=== PATIENT | female | born 1940 | race Caucasian/White ===

== ENCOUNTER 2017-12-23 19:09 | Inpatient (IN) | payer MEDICARE ==
[~2017-12-23] VITALS: Ht 177.8 cm; Wt 86.4 kg
[2017-12-24 02:05] VITALS: BP 140/75; PULSE 74; RESP 18; TEMP 97.8; O2SAT 96
[2017-12-24] MEDS ORDERED: AMLO10 PO (03:49)
[2017-12-24] MEDS ORDERED: LORA2TAB7 PO (03:51)
[2017-12-24] MEDS ORDERED: REME15TA PO (03:53)
[2017-12-24] MEDS ORDERED: ACET-822 PO (03:58)
[2017-12-24] MEDS ORDERED: MULT-65 PO (04:01)
[2017-12-24] MEDS ORDERED: DIAZ5TAB PO (04:01)
[2017-12-24] MEDS ORDERED: BENZ9.352 PO (04:09)
[2017-12-24] MEDS ORDERED: NICOTINE 21 MG/24 HR PATCH T-DERMAL PRN (04:30)
[2017-12-24] MEDS ORDERED: MAGNESIUM HYDROXIDE SUSP 30 ML CUP PO PRN (04:30)
[2017-12-24] MEDS ORDERED: REMOVE OLD NICOTINE PATCH T-DERMAL PRN (04:30)
[2017-12-24] MEDS ORDERED: ALUMINUM/MAGNESIUM/SIMETH 30 ML CUP PO PRN (04:30)
[2017-12-24] MEDS ORDERED: LORazepam 2 MG TAB PO PRN (05:00)
[2017-12-24] MEDS ORDERED: FLUMAZENIL 0.5 MG/5 ML VIAL IV PUSH PRN (05:00)
[2017-12-24] MEDS ORDERED: LORazepam 1 MG TAB PO PRN (05:00)
[2017-12-24] MEDS ORDERED: LORazepam 2 MG/ML VIAL IV PUSH PRN ×4 (05:00)
[2017-12-24 06:00] VITALS: BP 173/74; PULSE 63; RESP 16; TEMP 97.4; O2SAT 93
[2017-12-24 07:56] LABS: AUTOMATED NEUTROPHIL # 3.1 TH/MM3 (1.8-7.7); BASOPHIL # 0.1 TH/MM3 (0-0.2); BASOPHIL % 0.9 % (0.0-2.0); EOSINOPHIL # 0.2 TH/MM3 (0-0.4); EOSINOPHIL % 3.2 % (0.0-4.0); HEMATOCRIT 41.1 % (35.0-46.0); HEMOGLOBIN 14.1 GM/DL (11.6-15.3); LYMPH % 32.1 % (9.0-44.0); LYMPHOCYTE # 1.9 TH/MM3 (1.0-4.8); MEAN CELL VOLUME 93.6 FL (80.0-100.0); MEAN CORPUSCULAR HEMOGLOBIN 32.1 PG (27.0-34.0); MEAN CORPUSCULAR HGB CONC 34.3 % (32.0-36.0); MEAN PLATELET VOLUME 9.2 FL (7.0-11.0); MONO % 12.2 % (0.0-8.0); MONOCYTE # 0.7 TH/MM3 (0-0.9); NEUT % 51.6 % (16.0-70.0); PLATELET COUNT 192 TH/MM3 (150-450); RED BLOOD COUNT 4.39 MIL/MM3 (4.00-5.30); RED CELL DISTRIBUTION WIDTH 13.2 % (11.6-17.2)
[2017-12-24 08:07] LABS: ALBUMIN 3.3 GM/DL (3.4-5.0); ALT (GPT) 25 U/L (10-53); BICARBONATE 21.1 MEQ/L (21.0-32.0); BLOOD UREA NITROGEN 27 MG/DL (7-18); CALCIUM 9.5 MG/DL (8.5-10.1); CHLORIDE 110 MEQ/L (98-107); GLUCOSE,RANDOM 89 MG/DL (74-106); SODIUM (NA) 143 MEQ/L (136-145)
[2017-12-24 08:08] LABS: AST (GOT) 24 U/L (15-37); CREATININE 1.09 MG/DL (0.50-1.00); GLOMERULAR FILTRATION RATE 49 ML/MIN (>89); TOTAL BILIRUBIN ADULT 0.2 MG/DL (0.2-1.0)
[2017-12-24 08:17] LABS: ALKALINE PHOSPHATASE 126 U/L (45-117); TOTAL PROTEIN 6.7 GM/DL (6.4-8.2)
[2017-12-24] MEDS: ACETAMINOPHEN 325 MG TAB PO PRN ×2 (10:20→14:32)
--- NOTE | 2017-12-24 14:57 | HHI.HP ---
Provisional Diagnosis Admission Date Dec 24, 2017 at 02:00 George I. Adjustment disorder with mixed disturbances of emotion and conduct Certification of Person's Competence To Provide Express and Informed Consent I have personally examined Julianna Corea , a person being served at [facility] on, Dec 24, 2017 14:45. Express and informed consent means consent voluntarily given in writing, by a competent person, after sufficient explanation and disclosure of the subject matter involved to enable the person to make a knowing and willful decision without any element of force, fraud, deceit, duress, or other form of constraint or coercion. This person is 18 years of age or older, is not now known to be incompetent to consent to treatment with a guardian advocate, and does not have a health care surrogate or proxy currently making medical treatment decisions. I have found this person to be one of the following: [] Competent to provide express and informed consent, as defined above, for voluntary admission to this facility and is competent to provide express and informed consent for treatment. He/she has the consistent capacity to make well reasoned, willful, and knowing decisions concerning his or her medical or mental health treatment. The person fully and consistently understands the purpose of the admission for examination/placement and is fully capable of personally exercising all rights [place] [] Incompetent to provide express and informed consent to voluntary admission, and this is incompetent to provide express and informed consent to treatment. The person must be transferred to involuntary status and a petition for a guardian advocate filed with the Circuit Court. []xxxx Refusing to provide express and informed consent to voluntary admission but is competent to provide express and informed consent for treatment. The person must be discharged or transferred to involuntary status. Form shall be completed within 24 hours of a person's arrival at the receiving facility and filed in the clinical record of each person: 1. Admitted on a voluntary basis 2. Permitted to provide express and informed consent to his/her own treatment 3. Allowed to transfer from involuntary to voluntary status 4. Prior to permitting a person to consent to his or her own treatment after having been previously found incompetent to consent to treatment. History of Present Illness Capacity: Lacks Capacity (Patient lacks capacity to sign for admission, patient has capacity to sign for medication) HPI Patient is a 77-year-old white female initially comes to [facility] under a [place] act dated 12/22/2017 and 4: 18 PM that document reviewed essentially states patient states she wants to kill herself and has filled out her well because she is serious about wanting to kill herself. Patient was seen and screened in that facility medically cleared and transferred here under the [place] act. At the present time patient sitting quietly in her room present also or medical student julia, counselor Violet, and nurse Anabel. Patient states she is depressed because of relationship with her son is moved out of the house she wishes him back in the house she is somewhat confusing with some of her history though overall she seems to be oriented. She states she has had past hospitalizations for medical issues but denies any psychiatric hospitalization. Though a phone call with her daughter states she has been [place] acted 5 times in the past. Patient denies suicidality to us denies homicidality denies voices or visions. She denies any alcohol or drug use. She is vague about any past physical or sexual abuse, is vague about any mental health history in her family. In any event at the present time patient does meet criteria for continued inpatient psychiatric hospitalization of the [place] act I will do first opinion request a second opinion. I feel she has capacity to sign for medications. We will have a hospitalist consult will S, we will continue medications per the med verification except for the had 2 benzodiazepines that have been noted. We will have a neuropsychology to assessment also to status and assessing her cognitive function. Hopefully this to be a short stay we need to work with family to discuss placement issues since they live 2 counties away Review of Systems Constitutional: DENIES: Diaphoretic episodes, Fatigue, Fever, Weight gain, Weight loss, Chills, Dizziness, Change in appetite, Night Sweats Endocrine: DENIES: Abnorml menstrual pattern, Heat/cold intolerance, Polydipsia , Polyuria, Polyphagia Eyes: DENIES: Blurred vision, Diplopia, Eye inflammation, Eye pain, Vision loss , Photosensitivity, Double Vision Ears, nose, mouth, throat: DENIES: Tinnitus, Hearing loss, Vertigo, Nasal discharge, Oral lesions, Throat pain, Hoarseness, Ear Pain, Running Nose, Epistaxis, Sinus Pain, Toothache, Odynophagia Respiratory: DENIES: Apneas, Cough, Snoring, Wheezing, Hemoptysis, Sputum production, Shortness of breath Cardiovascular: DENIES: Chest pain, Palpitations, Syncope, Dyspnea on Exertion , PND, Lower Extremity Edema, Orthopnea, Claudication Gastrointestinal: DENIES: Abdominal pain, Black stools, Bloody stools, Constipation, Diarrhea, Nausea, Vomiting, Difficulty Swallowing, Anorexia Genitourinary: DENIES: Abnormal vaginal bleeding, Dysmenorrhea, Dyspareunia, Sexual dysfunction, Urinary frequency, Urinary incontinence, Urgency, Hematuria , Dysuria, Nocturia, Vaginal discharge Musculoskeletal: DENIES: Joint pain, Muscle aches, Stiffness, Joint Swelling, Back pain, Neck pain Hematologic/lymphatic: DENIES: Bruising, Lymphadenopathy Immunologic/allergic: DENIES: Eczema, Urticaria Neurologic: DENIES: Abnormal gait, Headache, Localized weakness, Paresthesias, Seizures, Speech Problems, Tremor, Poor Balance Psychiatric: COMPLAINS OF: Depression, Suicidal Ideation Past Psych History Psychological trauma history Patient denies Violence risk - others (6 mos) Low Violence risk - self (6 mos) Low to moderate Substance Abuse History Drugs/Alcohol past 12 months Unknown at this time Past Family Social History Coded Allergies: niacin (Verified Allergy, Intermediate, RASH, 12/24/17) morphine (Verified Allergy, Mild, RASH AT IV SITE, 12/24/17) Reported Medications Benzocaine (Oral Pain Relief) 20 % Gel..gram., PO for Pain Management 12/24/17 Diazepam (Diazepam) 5 Mg Tab, 5 MG PO BID Y for tremors, TAB 0 Refills 12/24/17 Multiple Vitamin (Multi-Vitamin Daily) 1 Tab Tab, 1 TAB PO DAILY for Nutritional Supplement, TAB 0 Refills 12/24/17 Acetaminophen (Tylenol Extra Strength) 500 Mg Tablet, PO Q8HR for headache 12/24/17 Mirtazapine (Remeron) 15 Mg Tab, 7.5 MG PO HS for Depression Control, #15 TAB 0 Refills 12/24/17 Lorazepam (Lorazepam) 2 Mg Tab, 2 MG PO Q6H Y for ANXIETY AND/OR AGITATION, TAB 0 Refills 12/24/17 Amlodipine (Norvasc) 10 Mg Tab, 10 MG PO DAILY for Blood Pressure Management, # 30 TAB 0 Refills 12/24/17 Current Medications Medications (Trade) Dose Ordered Sig/Carmen Route Start Time Stop Time Status Last Admin (Tylenol) 650 mg Q4H PRN PO 12/24/17 04:30 12/24/17 14:32 (Milk Of Magnesia Liq) 30 ml DAILY PRN PO 12/24/17 04:30 (Mag-Al Plus Susp Liq) 30 ml Q6H PRN PO 12/24/17 04:30 (Habitrol 21 Mg Patch.24 Hr) 1 patch DAILY PRN T-DERMAL 12/24/17 04:30 Miscellaneous Information 1 HS PRN T-DERMAL 12/24/17 04:30 (Flu (Quadrivalent) Vaccine Inj) 0.5 ml ONCE ONCE IM 12/25/17 10:00 12/25/17 10:01 (Ativan) 1 mg Q4H PRN PO 12/24/17 05:00 (Ativan Inj) 1 mg Q4H PRN IV PUSH 12/24/17 05:00 (Ativan) 2 mg Q2H PRN PO 12/24/17 05:00 (Ativan Inj) 2 mg Q2H PRN IV PUSH 12/24/17 05:00 (Ativan Inj) 2 mg Q1H PRN IV PUSH 12/24/17 05:00 (Ativan Inj) 2 mg Q15M PRN IV PUSH 12/24/17 05:00 (Romazicon Inj) 0.2 mg Q1M PRN IV PUSH 12/24/17 05:00 (Benadryl) 50 mg HS PRN PO 12/24/17 14:45 UNV (Atarax) 50 mg Q6H PRN PO 12/24/17 14:45 UNV (Norvasc) 10 mg DAILY PO 12/25/17 09:00 (Remeron) 7.5 mg HS PO 12/24/17 21:00 UNV Non-Formulary Medication 1 tab DAILY PO 12/25/17 09:00 UNV Family Psych History Unknown at this time Social History Patient lives alone he has grown children Patient's Strengths (min. 2) Patient verbal able access healthcare Physical Exam Patient medically cleared at at the present time patient sitting quietly in her room is in no acute distress was complaining of some pain in her tongue. She is in no respiratory distress, no complaints of chest pain, no complaints of abdominal pain, patient moving all 4 extremities without difficulty Vital Signs Vital Signs Date Time Temp Pulse Resp B/P (MAP) Pulse Ox O2 Delivery O2 Flow Rate FiO2 12/24/17 06:00 97.4 63 16 173/74 (107) 93 I/O 12/24/17 12/24/17 12/25/17 08:00 16:00 00:00 Intake Total 720 ml Balance 720 ml Lab Results Test 12/24/17 07:00 White Blood Count 6.0 TH/MM3 Red Blood Count 4.39 MIL/MM3 Hemoglobin 14.1 GM/DL Hematocrit 41.1 % Mean Corpuscular Volume 93.6 FL Mean Corpuscular Hemoglobin 32.1 PG Mean Corpuscular Hemoglobin Concent 34.3 % Red Cell Distribution Width 13.2 % Platelet Count 192 TH/MM3 Mean Platelet Volume 9.2 FL Neutrophils (%) (Auto) 51.6 % Lymphocytes (%) (Auto) 32.1 % Monocytes (%) (Auto) 12.2 % Eosinophils (%) (Auto) 3.2 % Basophils (%) (Auto) 0.9 % Neutrophils # (Auto) 3.1 TH/MM3 Lymphocytes # (Auto) 1.9 TH/MM3 Monocytes # (Auto) 0.7 TH/MM3 Eosinophils # (Auto) 0.2 TH/MM3 Basophils # (Auto) 0.1 TH/MM3 CBC Comment DIFF FINAL Differential Comment Blood Urea Nitrogen 27 MG/DL Creatinine 1.09 MG/DL Random Glucose 89 MG/DL Total Protein 6.7 GM/DL Albumin 3.3 GM/DL Calcium Level 9.5 MG/DL Alkaline Phosphatase 126 U/L Aspartate Amino Transf (AST/SGOT) 24 U/L Alanine Aminotransferase (ALT/SGPT) 25 U/L Total Bilirubin 0.2 MG/DL Sodium Level 143 MEQ/L Potassium Level 3.7 MEQ/L Chloride Level 110 MEQ/L Carbon Dioxide Level 21.1 MEQ/L Anion Gap 12 MEQ/L Estimat Glomerular Filtration Rate 49 ML/MIN Thyroid Stimulating Hormone 3rd Gen 2.850 uIU/ML Mental Status Examination Appearance: Appropriate Consciousness: Alert Orientation: Person, Place (Confused), Date/Time (Quite confused), Situation ( Low since the hospital) Speech: Unremarkable Language: Adequate Fund of Knowledge: Adequate Attention and Concentration: Other (Fair) Memory: Impaired Mood: Sad Affect: Other (Decreased range and intensity) Thought Process & Associations: Disorganized Thought Content: Bizarre thinking Hallucination Type: None Delusion Type: None Suicidal Ideation: No (Denies at this time) Suicidal Plan: No Suicidal Intention: No Homicidal Ideation: No Homicidal Plan: No Homicidal Intention: No Insight: Poor Judgment: Poor Assessment & Plan Problem List: (1) Adjustment disorder with mixed disturbance of emotions and conduct ICD Codes: F43.25 - Adjustment disorder with mixed disturbance of emotions and conduct Assessment & Plan Estimated LOS: 3-5 days patient meets criteria for involuntary psychiatric hospitalization I will do first opinion request second opinion before she does have capacity to sign for medications. We will have a hospitalist consult will S will also have no psychology consult with us. We will continue medications per the med reconciliation hopeless be fairly short stay and we can consult with the members about placement issues Discharge Planning To be determined Request HC Surrog/Guard Advoc?: No Dawson Dickerson MD Dec 24, 2017 14:57
[2017-12-24] MEDS ORDERED: PILL SPLITTER OTHER PRN (15:00)
--- NOTE | 2017-12-24 17:02 | PD.CONS ---
HPI Service [facility] Hospitalists Consult Requested By Psychiatry Reason for Consult Medical management Primary Care Physician Unknown Diagnoses: History of Present Illness 77-year-old female for past medical history of hypertension, who is currently under [place] act and admitted to inpatient psychiatry, he has been evaluated for medical management per request of psychiatry. Apparently, patient was transferred to [facility] from [place] secondary to suicidal ideation however without any homicidal thoughts. Patient states, she was upset at the thought that her son left home. She denied any prior history of suicidal ideations, however she was placed under [place] act at least 5 times in the past. During my exam, she denied any chest pain, shortness of breath. She appear remorseful and regretted her act. Review of Systems Except as stated in HPI: all other systems reviewed are Neg Past Family Social History Allergies: Coded Allergies: niacin (Verified Allergy, Intermediate, RASH, 12/24/17) morphine (Verified Allergy, Mild, RASH AT IV SITE, 12/24/17) Past Medical History Hypertension Anxiety and depression Past Surgical History Hysterectomy Appendectomy Cholecystectomy Reported Medications See EMR Family History Denies any family history of heart disease Social History Patient denies tobacco, or illicit drug intake Physical Exam Vital Signs Vital Signs Date Time Temp Pulse Resp B/P (MAP) Pulse Ox O2 Delivery O2 Flow Rate FiO2 12/24/17 06:00 97.4 63 16 173/74 (107) 93 12/24/17 02:05 97.8 74 18 140/75 (96) 96 Physical Exam GENERAL: This is a well-nourished, well-developed patient, in no apparent distress. SKIN: No rashes, ecchymoses or lesions. Cool and dry. HEAD: Atraumatic. Normocephalic. No temporal or scalp tenderness. EYES: Pupils equal round and reactive. Extraocular motions intact. No scleral icterus. No injection or drainage. ENT: Nose without bleeding, purulent drainage or septal hematoma. Throat without erythema, tonsillar hypertrophy or exudate. Uvula midline. Airway patent. NECK: Trachea midline. No JVD or lymphadenopathy. Supple, nontender, no meningeal signs. CARDIOVASCULAR: Regular rate and rhythm without murmurs, gallops, or rubs. RESPIRATORY: Clear to auscultation. Breath sounds equal bilaterally. No wheezes , rales, or rhonchi. GASTROINTESTINAL: Abdomen soft, non-tender, nondistended. No hepato-splenomegaly , or palpable masses. No guarding. MUSCULOSKELETAL: Extremities without clubbing, cyanosis, or edema. No joint tenderness, effusion, or edema noted. No calf tenderness. Negative Homans sign bilaterally. NEUROLOGICAL: Awake and alert. Cranial nerves II through XII intact. Motor and sensory grossly within normal limits. Five out of 5 muscle strength in all muscle groups. Normal speech. Laboratory Laboratory Tests Test 12/24/17 07:00 White Blood Count 6.0 Red Blood Count 4.39 Hemoglobin 14.1 Hematocrit 41.1 Mean Corpuscular Volume 93.6 Mean Corpuscular Hemoglobin 32.1 Mean Corpuscular Hemoglobin Concent 34.3 Red Cell Distribution Width 13.2 Platelet Count 192 Mean Platelet Volume 9.2 Neutrophils (%) (Auto) 51.6 Lymphocytes (%) (Auto) 32.1 Monocytes (%) (Auto) 12.2 Eosinophils (%) (Auto) 3.2 Basophils (%) (Auto) 0.9 Neutrophils # (Auto) 3.1 Lymphocytes # (Auto) 1.9 Monocytes # (Auto) 0.7 Eosinophils # (Auto) 0.2 Basophils # (Auto) 0.1 CBC Comment DIFF FINAL Differential Comment Blood Urea Nitrogen 27 Creatinine 1.09 Random Glucose 89 Total Protein 6.7 Albumin 3.3 Calcium Level 9.5 Alkaline Phosphatase 126 Aspartate Amino Transf (AST/SGOT) 24 Alanine Aminotransferase (ALT/SGPT) 25 Total Bilirubin 0.2 Sodium Level 143 Potassium Level 3.7 Chloride Level 110 Carbon Dioxide Level 21.1 Anion Gap 12 Estimat Glomerular Filtration Rate 49 Thyroid Stimulating Hormone 3rd Gen 2.850 Result Diagram: 12/24/17 0700 12/24/17 0700 Assessment and Plan Assessment and Plan 77-year-old female with Acute mood disorder Management per psychiatry Continue Palma act Hypertension Resume normal box and add clonidine as needed Acute renal injury Prerenal likely secondary to dehydration Encourage increased p.o. intake Monitor BUN and creatinine DVT prophylaxis: Encourage ambulation Thank you for this consultation Code Status Full code Discussed Condition With Patient Stuart Alejandro MD Dec 24, 2017 17:02
[2017-12-24] MEDS ORDERED: cloNIDine HCL 0.1 MG TAB PO PRN (17:15)
[2017-12-24 17:48] VITALS: BP 178/70; PULSE 76; RESP 16; TEMP 97.6; O2SAT 94
[2017-12-24 20:00] VITALS: BP 158/78; PULSE 79
[2017-12-24] MEDS: MIRTAZAPINE 15 MG TAB PO SCH (20:42)
[2017-12-24] MEDS: hydrOXYzine HCL 50 MG TAB PO PRN (20:52)
[2017-12-24] MEDS: diphenhydrAMINE HCL 50 MG CAP PO PRN (20:52)
[2017-12-25 05:53] VITALS: BP 143/68; PULSE 71; RESP 17; TEMP 97.7; O2SAT 92
[2017-12-25 08:42] LABS: CHOLESTEROL 257 MG/DL (120-200)
[2017-12-25 08:49] LABS: CHOLESTEROL/ HDL RATIO 6.04 RATIO; HDL CHOLESTEROL 42.5 MG/DL (40.0-60.0); LDL CHOLESTEROL 170 MG/DL (0-99)
[2017-12-25 08:51] LABS: TRIGLYCERIDES 222 MG/DL (42-150)
[2017-12-25] MEDS: MULTIVITAMIN TAB PO SCH (09:32)
[2017-12-25] MEDS ORDERED: INFLUENZA VIRUS VACCINE (QUADRIVALENT) 0.5 ML SYR IM ONE (10:00)
--- NOTE | 2017-12-25 11:02 | HHI.PR ---
Subjective Remarks Follow-up visit for hypertension and SARTHAK. Patient is seen and examined in her room, ambulating without any assistive devices. She reports being compliant with medications and understands the importance of BP control. She denies any fevers, chills, nausea, vomiting, diarrhea, headaches, dizziness, shortness of breath, cough or chest pain. She reports that she would like to go home as she has a new grandchild who she is eager to see and meet. Objective Vitals Vital Signs Date Time Temp Pulse Resp B/P (MAP) Pulse Ox O2 Delivery O2 Flow Rate FiO2 12/25/17 05:53 97.7 71 17 143/68 (93) 92 12/24/17 20:00 79 158/78 (104) 12/24/17 17:48 97.6 76 16 178/70 (106) 94 I/O 12/24/17 12/24/17 12/24/17 12/25/17 12/25/17 12/25/17 07:00 15:00 23:00 07:00 15:00 23:00 Intake Total 720 ml 480 ml 480 ml 240 ml Balance 720 ml 480 ml 480 ml 240 ml Intake Oral 720 ml 480 ml 480 ml 240 ml # Voids 1 Result Diagram: 12/24/17 0700 12/24/17 0700 Objective Remarks GENERAL: Well-developed well-nourished elderly female in no acute distress. SKIN: Warm and dry HEAD: Atraumatic. EYES: Pupils equal round. No scleral icterus. No injection or drainage. ENT: Nose without bleeding. Airway patent. NECK: Trachea midline. CARDIOVASCULAR: Regular rate and rhythm with no murmur. RESPIRATORY: Clear throughout, equal bilaterally with no rhonchi, wheezing, or rales. GASTROINTESTINAL: Soft, nondistended, positive bowel sounds in all quadrants, nontender. MUSCULOSKELETAL: Moving bilateral upper and lower extremities, ambulating the valerio with no assistive devices, no leg edema noted. NEUROLOGICAL: Awake, alert, oriented 3. No cranial nerve deficit noted, equal strength in bilateral upper and lower extremities. Speech is clear, no facial droop. PSYCHIATRIC: Calm, pleasant and cooperative. A/P Assessment and Plan 77-year-old female with Acute mood disorder -Management per psychiatry Hypertension, BP elevated -Patient has received first dose of Norvasc this morning -As needed clonidine as needed -Continue monitoring BP and adjusting medications accordingly Acute renal injury -Prerenal likely secondary to dehydration -Continue to encourage p.o. intake -Check BMP tomorrow HLD -Lipid profile reviewed with elevated LDL at 170, cholesterol, and triglycerides. -10 year ASCVD risk 30.4, due to age recommendations for moderate intensity statin - Start Pravastatin 40mg HS, follow-up LFTs as outpatient, monitor for myalgia DVT prophylaxis: Ambulation Discussed with patient and nurse. Dominick Luevano Dec 25, 2017 11:02
--- NOTE | 2017-12-25 12:35 | PD.PSY.CON ---
Provisional Diagnosis Admission Date Dec 24, 2017 at 02:00 [place]. Adjustment disorder with mixed disturbances of emotion and conduct History of Present Illness Service Psychiatry Consult Requested By psychiatry Reason for Consult second opinion Primary Care Physician Unknown HPI Patient is a 77-year-old white female initially comes to [facility] under a [place] act dated 12/22/2017 and 4: 18 PM that document reviewed essentially states patient states she wants to kill herself and has filled out her well because she is serious about wanting to kill herself. Patient was seen and screened in that facility medically cleared and transferred here under the [place] act. At the present time patient sitting quietly in her room present also or medical student julia, counselor Violet, and nurse Anabel. Patient states she is depressed because of relationship with her son is moved out of the house she wishes him back in the house she is somewhat confusing with some of her history though overall she seems to be oriented. She states she has had past hospitalizations for medical issues but denies any psychiatric hospitalization. Though a phone call with her daughter states she has been [place] acted 5 times in the past. Patient denies suicidality to us denies homicidality denies voices or visions. She denies any alcohol or drug use. She is vague about any past physical or sexual abuse, is vague about any mental health history in her family. In any event at the present time patient does meet criteria for continued inpatient psychiatric hospitalization of the [place] act I will do first opinion request a second opinion. I feel she has capacity to sign for medications. We will have a hospitalist consult will S, we will continue medications per the med verification except for the had 2 benzodiazepines that have been noted. We will have a neuropsychology to assessment also to status and assessing her cognitive function. Hopefully this to be a short stay we need to work with family to discuss placement issues since they live 2 counties away. The patient is a 77-year-old woman, domiciled alone, psychiatric history of depression, who was hospitalized on the [place] act for suicidal ideation. She was consulted to me for second opinion. The patient is calm, cooperative, states that she feels much better today. She is eating her lunch, reports that she has been quite depressed and upset after her son move out of her house. But at this moment feels much better, denies hopelessness, denies hopelessness, denies worthlessness, she denies suicidal and homicidal ideation at the moment, she denies visual and auditory hallucinations. She is oriented 3. Review of Systems Constitutional: DENIES: Diaphoretic episodes, Fatigue, Fever, Weight gain, Weight loss, Chills, Dizziness, Change in appetite, Night Sweats Endocrine: DENIES: Abnorml menstrual pattern, Heat/cold intolerance, Polydipsia , Polyuria, Polyphagia Eyes: DENIES: Blurred vision, Diplopia, Eye inflammation, Eye pain, Vision loss , Photosensitivity, Double Vision Ears, nose, mouth, throat: DENIES: Tinnitus, Hearing loss, Vertigo, Nasal discharge, Oral lesions, Throat pain, Hoarseness, Ear Pain, Running Nose, Epistaxis, Sinus Pain, Toothache, Odynophagia Respiratory: DENIES: Apneas, Cough, Snoring, Wheezing, Hemoptysis, Sputum production, Shortness of breath Cardiovascular: DENIES: Chest pain, Palpitations, Syncope, Dyspnea on Exertion , PND, Lower Extremity Edema, Orthopnea, Claudication Gastrointestinal: DENIES: Abdominal pain, Black stools, Bloody stools, Constipation, Diarrhea, Nausea, Vomiting, Difficulty Swallowing, Anorexia Genitourinary: DENIES: Abnormal vaginal bleeding, Dysmenorrhea, Dyspareunia, Sexual dysfunction, Urinary frequency, Urinary incontinence, Urgency, Hematuria , Dysuria, Nocturia, Vaginal discharge Musculoskeletal: DENIES: Joint pain, Muscle aches, Stiffness, Joint Swelling, Back pain, Neck pain Integumentary: DENIES: Abnormal pigmentation, Pruritus, Rash, Nail changes, Breast masses, Breast skin changes, Nipple discharge Hematologic/lymphatic: DENIES: Bruising, Lymphadenopathy Immunologic/allergic: DENIES: Eczema, Urticaria Psychiatric: COMPLAINS OF: Depression, DENIES: Anxiety, Confusion, Mood changes , Hallucinations, Agitation, Suicidal Ideation, Homicidal Ideation, Delusions Past Family Social History Coded Allergies: niacin (Verified Allergy, Intermediate, RASH, 12/24/17) morphine (Verified Allergy, Mild, RASH AT IV SITE, 12/24/17) Reported Medications Benzocaine (Oral Pain Relief) 20 % Gel..gram., PO for Pain Management 12/24/17 Diazepam (Diazepam) 5 Mg Tab, 5 MG PO BID Y for tremors, TAB 0 Refills 12/24/17 Multiple Vitamin (Multi-Vitamin Daily) 1 Tab Tab, 1 TAB PO DAILY for Nutritional Supplement, TAB 0 Refills 12/24/17 Acetaminophen (Tylenol Extra Strength) 500 Mg Tablet, PO Q8HR for headache 12/24/17 Mirtazapine (Remeron) 15 Mg Tab, 7.5 MG PO HS for Depression Control, #15 TAB 0 Refills 12/24/17 Lorazepam (Lorazepam) 2 Mg Tab, 2 MG PO Q6H Y for ANXIETY AND/OR AGITATION, TAB 0 Refills 12/24/17 Amlodipine (Norvasc) 10 Mg Tab, 10 MG PO DAILY for Blood Pressure Management, # 30 TAB 0 Refills 12/24/17 Current Medications Medications (Trade) Dose Ordered Sig/Carmen Route Start Time Stop Time Status Last Admin (Tylenol) 650 mg Q4H PRN PO 12/24/17 04:30 12/24/17 14:32 (Milk Of Magnesia Liq) 30 ml DAILY PRN PO 12/24/17 04:30 (Mag-Al Plus Susp Liq) 30 ml Q6H PRN PO 12/24/17 04:30 (Habitrol 21 Mg Patch.24 Hr) 1 patch DAILY PRN T-DERMAL 12/24/17 04:30 Miscellaneous Information 1 HS PRN T-DERMAL 12/24/17 04:30 (Ativan) 1 mg Q4H PRN PO 12/24/17 05:00 (Ativan Inj) 1 mg Q4H PRN IV PUSH 12/24/17 05:00 (Ativan) 2 mg Q2H PRN PO 12/24/17 05:00 (Ativan Inj) 2 mg Q2H PRN IV PUSH 12/24/17 05:00 (Ativan Inj) 2 mg Q1H PRN IV PUSH 12/24/17 05:00 (Ativan Inj) 2 mg Q15M PRN IV PUSH 12/24/17 05:00 (Romazicon Inj) 0.2 mg Q1M PRN IV PUSH 12/24/17 05:00 (Benadryl) 50 mg HS PRN PO 12/24/17 21:00 12/24/17 20:52 (Atarax) 50 mg Q6H PRN PO 12/24/17 14:45 12/24/17 20:52 (Norvasc) 10 mg DAILY PO 12/25/17 09:00 12/25/17 09:32 (Remeron) 7.5 mg HS PO 12/24/17 21:00 12/24/17 20:42 (Theragran) 1 tab DAILY PO 12/25/17 09:00 12/25/17 09:32 (Pill Splitter) 1 ea UNSCH PRN OTHER 12/24/17 15:00 (Catapres) 0.1 mg Q6H PRN PO 12/24/17 17:15 (Eucerin Cream) 1 applic DAILY TOPICAL 12/26/17 09:00 Patient's Strengths (min. 2) Patient verbal able access healthcare Physical Exam Vital Signs Vital Signs Date Time Temp Pulse Resp B/P (MAP) Pulse Ox O2 Delivery O2 Flow Rate FiO2 12/25/17 05:53 97.7 71 17 143/68 (93) 92 I/O 12/25/17 12/25/17 12/26/17 08:00 16:00 00:00 Intake Total 720 ml Balance 720 ml Lab Results Test 12/25/17 06:56 Triglycerides Level 222 MG/DL Cholesterol Level 257 MG/DL LDL Cholesterol 170 MG/DL HDL Cholesterol 42.5 MG/DL Cholesterol/HDL Ratio 6.04 RATIO Mental Status Examination Appearance: Appropriate Consciousness: Alert Orientation: Person, Place (Confused), Date/Time (Quite confused), Situation ( Low since the hospital) Speech: Unremarkable Language: Adequate Fund of Knowledge: Adequate Attention and Concentration: Other (Fair) Memory: Impaired Mood: Sad Affect: Other (Decreased range and intensity) Thought Process & Associations: Disorganized Thought Content: Bizarre thinking Hallucination Type: None Delusion Type: None Suicidal Ideation: No (Denies at this time) Suicidal Plan: No Suicidal Intention: No Homicidal Ideation: No Homicidal Plan: No Homicidal Intention: No Insight: Poor Judgment: Poor Assessment & Plan Problem List: (1) Adjustment disorder with mixed disturbance of emotions and conduct ICD Codes: F43.25 - Adjustment disorder with mixed disturbance of emotions and conduct Assessment & Plan: I have seen and examined this patient, reviewed documentation, I agree and concur with Dr. Dickerson's assessment and plan. Assessment & Plan Estimated LOS: days Request HC Surrog/Guard Advoc?: Devaughn Rodgers MD Dec 25, 2017 12:34
[2017-12-25] MEDS: ACETAMINOPHEN 325 MG TAB PO PRN (13:57)
[2017-12-25 15:40] LABS: HEMOGLOBIN A1C 5.4 % (4.3-6.0)
--- NOTE | 2017-12-25 16:29 | HHI.PYPN ---
Subjective Remarks Reviewed electronic medical records and discussed case with staff. Patient was evaluated in the day room with SAWYER Fung present. She was found sitting at the table talking with other patients. She advises that she has been sleeping well and her appetite has been "too good". She begins discussing her 's approximately 2 years ago and becomes tearful. She does state that she would like to go to assisted living facility when she leaves here. Overall, she believes she is doing better however there is still evidence that she is grieving. Mental Status Examination Appearance: Appropriate Consciousness: Alert Orientation: Person, Place (Confused), Date/Time (Quite confused), Situation ( Low since the hospital) Speech: Unremarkable Language: Adequate Fund of Knowledge: Adequate Attention and Concentration: Other (Fair) Memory: Impaired Mood: Sad Affect: Other (Decreased range and intensity) Thought Process & Associations: Disorganized Thought Content: Bizarre thinking Hallucination Type: None Delusion Type: None Suicidal Ideation: No (Denies at this time) Suicidal Plan: No Suicidal Intention: No Homicidal Ideation: No Homicidal Plan: No Homicidal Intention: No Insight: Poor Judgment: Poor Results Labs Test 12/25/17 06:56 Triglycerides Level 222 MG/DL Cholesterol Level 257 MG/DL LDL Cholesterol 170 MG/DL HDL Cholesterol 42.5 MG/DL Cholesterol/HDL Ratio 6.04 RATIO Vitals/IOs Vital Signs Date Time Temp Pulse Resp B/P (MAP) Pulse Ox O2 Delivery O2 Flow Rate FiO2 12/25/17 05:53 97.7 71 17 143/68 (93) 92 Intake and Output 12/25/17 12/25/17 12/26/17 08:00 16:00 00:00 Intake Total 1320 ml Balance 1320 ml Assessment & Plan Problem List: (1) Adjustment disorder with mixed disturbance of emotions and conduct ICD Codes: F43.25 - Adjustment disorder with mixed disturbance of emotions and conduct Assessment & Plan Estimated LOS: Discharge planning is in progress continue with current treatment plan. Days Justification for Cont. Inpt. Moving this patient to a lower level of care would likely result in a decompensation. Request HC Surrog/Guard Advoc?: No Berenice Wiley Dec 25, 2017 16:29
[2017-12-25] MEDS: MIRTAZAPINE 15 MG TAB PO SCH (20:52)
[2017-12-25] MEDS: PRAVASTATIN SOD 40 MG TAB PO SCH (20:52)
[2017-12-25] MEDS: hydrOXYzine HCL 50 MG TAB PO PRN (20:57)
[2017-12-25] MEDS: diphenhydrAMINE HCL 50 MG CAP PO PRN (20:57)
[2017-12-26 05:15] VITALS: BP 127/68; PULSE 75; RESP 18; TEMP 97.8; O2SAT 92
[2017-12-26] MEDS: MULTIVITAMIN TAB PO SCH (08:31)
[2017-12-26] MEDS: EUCERIN CREAM 120 GM JAR TOPICAL SCH (08:31)
[2017-12-26 09:39] LABS: BICARBONATE 23.4 MEQ/L (21.0-32.0); CALCIUM 9.9 MG/DL (8.5-10.1); CREATININE 1.27 MG/DL (0.50-1.00)
--- NOTE | 2017-12-26 10:30 | HHI.PR ---
Subjective Remarks Follow-up visit for hypertension and SARTHAK. Patient is seen and examined in the day room in no acute distress. We discussed her labs and patient tells me that she dos not like the taste of the water, but will try and drink for fluids. She denies any fevers, chills, N/V/D, SOB, cough or muscle aches and pains. She voices no acute concern or complaint at this moment. Objective Vitals Vital Signs Date Time Temp Pulse Resp B/P (MAP) Pulse Ox O2 Delivery O2 Flow Rate FiO2 12/26/17 05:15 97.8 75 18 127/68 (87) 92 I/O 12/25/17 12/25/17 12/25/17 12/26/17 12/26/17 12/26/17 07:00 15:00 23:00 07:00 15:00 23:00 Intake Total 480 ml 1320 ml 270 ml 240 ml 240 ml Balance 480 ml 1320 ml 270 ml 240 ml 240 ml Intake Oral 480 ml 1320 ml 270 ml 240 ml 240 ml # Voids 1 2 3 Result Diagram: 12/24/17 0700 12/26/17 0805 Objective Remarks GENERAL: Well-developed well-nourished elderly female in no acute distress. SKIN: Warm and dry HEAD: Atraumatic. EYES: Pupils equal round. No scleral icterus. No injection or drainage. ENT: Nose without bleeding. Airway patent. NECK: Trachea midline. CARDIOVASCULAR: Regular rate and rhythm with no murmur. RESPIRATORY: Clear throughout, equal bilaterally with no rhonchi, wheezing, or rales. GASTROINTESTINAL: Soft, nondistended, positive bowel sounds in all quadrants, nontender. MUSCULOSKELETAL: Moving bilateral upper and lower extremities, ambulating the valerio, no leg edema noted. NEUROLOGICAL: Awake, alert, oriented 3. No cranial nerve deficit noted, equal strength in bilateral upper and lower extremities. Speech is clear, no facial droop. PSYCHIATRIC: Calm, pleasant and cooperative. A/P Assessment and Plan 77-year-old female with Acute mood disorder -Management per psychiatry Hypertension, improved -Continue Norvasc -As needed clonidine as needed -Continue monitoring BP and adjusting medications accordingly Acute renal injury -Prerenal likely secondary to dehydration - Renal function slightly worse today with increase in BUN and creatinine, Crystal light bottle TID, discussed importance of p.o. hydration - Check BMP on Thursday HLD -Lipid profile reviewed with elevated LDL at 170, cholesterol, and triglycerides. -10 year ASCVD risk 30.4, moderate intensity statin recommended - Continue Pravastatin 40mg HS, follow-up LFTs as outpatient, monitor for myalgia DVT prophylaxis: Ambulation Discussed with patient and nurse. Dominick Luevano Dec 26, 2017 10:30
--- NOTE | 2017-12-26 15:41 | HHI.PYPN ---
Subjective Remarks Patient was seen and case discussed with nursing. Patient feels that her mood is improving. Though her affect remains quite anxious. Per nursing, she is social and helpful on the unit. Somewhat upset she has been able to reach her daughter on the phone. Compliant with medications. Eating and sleeping well Mental Status Examination Appearance: Appropriate Consciousness: Alert Orientation: Person, Place (Confused), Date/Time (Quite confused), Situation ( Low since the hospital) Speech: Unremarkable Language: Adequate Fund of Knowledge: Adequate Attention and Concentration: Other (Fair) Memory: Impaired Mood: Sad Affect: Other (Decreased range and intensity) Thought Process & Associations: Disorganized Thought Content: Bizarre thinking Hallucination Type: None Delusion Type: None Suicidal Ideation: No (Denies at this time) Suicidal Plan: No Suicidal Intention: No Homicidal Ideation: No Homicidal Plan: No Homicidal Intention: No Insight: Poor Judgment: Poor Results Labs Test 12/26/17 08:05 Blood Urea Nitrogen 29 MG/DL Creatinine 1.27 MG/DL Random Glucose 93 MG/DL Calcium Level 9.9 MG/DL Sodium Level 143 MEQ/L Potassium Level 4.1 MEQ/L Chloride Level 110 MEQ/L Carbon Dioxide Level 23.4 MEQ/L Anion Gap 10 MEQ/L Estimat Glomerular Filtration Rate 41 ML/MIN Vitals/IOs Vital Signs Date Time Temp Pulse Resp B/P (MAP) Pulse Ox O2 Delivery O2 Flow Rate FiO2 12/26/17 05:15 97.8 75 18 127/68 (87) 92 Intake and Output 12/26/17 12/26/17 12/27/17 08:00 16:00 00:00 Intake Total 240 ml 360 ml Balance 240 ml 360 ml Assessment & Plan Problem List: (1) Adjustment disorder with mixed disturbance of emotions and conduct ICD Codes: F43.25 - Adjustment disorder with mixed disturbance of emotions and conduct Assessment & Plan Continue current treatment plan Justification for Cont. Inpt. Patient would decompensate in a less restrictive setting Request HC Surrog/Guard Advoc?: No Slim Gomez DO Dec 26, 2017 15:41
[2017-12-26 18:00] VITALS: BP 174/73; PULSE 106; RESP 18; TEMP 97.8; O2SAT 97
[2017-12-26] MEDS: hydrOXYzine HCL 50 MG TAB PO PRN (20:20)
[2017-12-26] MEDS: MIRTAZAPINE 15 MG TAB PO SCH (20:20)
[2017-12-26] MEDS: ACETAMINOPHEN 325 MG TAB PO PRN (20:20)
[2017-12-26] MEDS: diphenhydrAMINE HCL 50 MG CAP PO PRN (20:20)
[2017-12-26] MEDS: PRAVASTATIN SOD 40 MG TAB PO SCH (20:20)
[2017-12-27 06:45] VITALS: BP 116/57; PULSE 74; RESP 17; TEMP 97.8; O2SAT 92
[2017-12-27] MEDS: EUCERIN CREAM 120 GM JAR TOPICAL SCH (08:21)
[2017-12-27] MEDS: MULTIVITAMIN TAB PO SCH (08:22)
--- NOTE | 2017-12-27 12:36 | HHI.PR ---
Subjective Remarks Follow up for HTN, SARTHAK. The patient is seen in the day room eating lunch. She denies any headache, lightheadedness, dizziness, chest pain, shortness of breath , or abdominal complaints. She reports an ache at her right posterior hip, however still able to ambulate without difficulty. She denies any other medical complaints at this time. Discussed with RN, no acute concerns. Encouraged patient to continue oral hydration. Objective Vitals Vital Signs Date Time Temp Pulse Resp B/P (MAP) Pulse Ox O2 Delivery O2 Flow Rate FiO2 12/27/17 06:45 97.8 74 17 116/57 (76) 92 12/26/17 18:00 97.8 106 18 174/73 (106) 97 I/O 12/26/17 12/26/17 12/26/17 12/27/17 12/27/17 12/27/17 07:00 15:00 23:00 07:00 15:00 23:00 Intake Total 240 ml 600 ml 480 ml Balance 240 ml 600 ml 480 ml Intake Oral 240 ml 600 ml 480 ml # Voids 3 1 2 Result Diagram: 12/24/17 0700 12/26/17 0805 Objective Remarks GENERAL: Well-nourished, well-developed elderly female patient in [facility]. SKIN: Warm and dry. No rash. Small healing abrasion at right posterior hip. HEENT: Normocephalic. Atraumatic. Pupils equal and round. Mucous membranes pink and moist. NECK: Supple. Trachea midline. CARDIOVASCULAR: Regular rate and rhythm. No murmur appreciated. RESPIRATORY: No accessory muscle use. Clear to auscultation. Breath sounds equal bilaterally. GASTROINTESTINAL: Abdomen soft, non-tender, nondistended. Normoactive bowel sounds x4. MUSCULOSKELETAL: No obvious deformities. Extremities without clubbing, cyanosis , or edema. Right posterior lateral hip mildly tender to palpation, no overlying erythema/edema but does have healing scab. Full active range of motion of right hip and 5/5 strength. NEUROLOGICAL: Awake and alert. No obvious cranial nerve deficits. Motor grossly within normal limits. Moving all extremities spontaneously. Normal speech. Medications and IVs Current Medications Medications (Trade) Dose Ordered Sig/Carmen Route Start Time Stop Time Status Last Admin (Tylenol) 650 mg Q4H PRN PO 12/24/17 04:30 12/26/17 20:20 (Milk Of Magnesia Liq) 30 ml DAILY PRN PO 12/24/17 04:30 (Mag-Al Plus Susp Liq) 30 ml Q6H PRN PO 12/24/17 04:30 (Habitrol 21 Mg Patch.24 Hr) 1 patch DAILY PRN T-DERMAL 12/24/17 04:30 Miscellaneous Information 1 HS PRN T-DERMAL 12/24/17 04:30 (Ativan) 1 mg Q4H PRN PO 12/24/17 05:00 (Ativan Inj) 1 mg Q4H PRN IV PUSH 12/24/17 05:00 (Ativan) 2 mg Q2H PRN PO 12/24/17 05:00 (Ativan Inj) 2 mg Q2H PRN IV PUSH 12/24/17 05:00 (Ativan Inj) 2 mg Q1H PRN IV PUSH 12/24/17 05:00 (Ativan Inj) 2 mg Q15M PRN IV PUSH 12/24/17 05:00 (Romazicon Inj) 0.2 mg Q1M PRN IV PUSH 12/24/17 05:00 (Benadryl) 50 mg HS PRN PO 12/24/17 21:00 12/26/17 20:20 (Atarax) 50 mg Q6H PRN PO 12/24/17 14:45 12/26/17 20:20 (Norvasc) 10 mg DAILY PO 12/25/17 09:00 12/27/17 08:22 (Remeron) 7.5 mg HS PO 12/24/17 21:00 12/26/17 20:20 (Theragran) 1 tab DAILY PO 12/25/17 09:00 12/27/17 08:22 (Pill Splitter) 1 ea UNSCH PRN OTHER 12/24/17 15:00 (Catapres) 0.1 mg Q6H PRN PO 12/24/17 17:15 (Eucerin Cream) 1 applic DAILY TOPICAL 12/26/17 09:00 12/27/17 08:21 (Pravachol) 40 mg HS PO 12/25/17 21:00 12/26/17 20:20 A/P Assessment and Plan 77-year-old female with Adjustment disorder: Acute -Continue management per psychiatry Hypertension: BP labile -Continue Norvasc 10mg daily -Continue clonidine as needed -Monitor BP, adjust antihypertensives as needed SARTHAK: Suspect prerenal secondary to dehydration recently decreased oral intake -Encouraged oral hydration, thoroughly discussed with the patient -Avoid nephrotoxins -Repeat BMP tomorrow Hyperlipidemia -Lipid profile reviewed with elevated LDL at 170, cholesterol 257, and triglycerides 222 -10 year ASCVD risk 30.4, moderate intensity statin recommended -Continue Pravastatin 40mg HS, follow-up LFTs as outpatient, monitor for myalgias Right hip pain: Suspect osteoarthritis -Check right hip x-ray to rule out fracture -Tylenol as needed for pain DVT prophylaxis: Ambulation Yamilet Araujo PA-C Dec 27, 2017 12:36 pm
--- NOTE | 2017-12-27 12:42 | HHI.PYPN ---
Subjective Remarks Catracho with nursing. Patient is pleasant and cooperative with exam. She is excited that she had a grandchild born 5 days ago. She is social on the unit. Laughing throughout the day. Affect remains quite anxious however. Compliant with medications. She denies suicidal or homicidal ideation intent or plan Mental Status Examination Appearance: Appropriate Consciousness: Alert Orientation: x4, Person, Place (Confused), Date/Time (Quite confused), Situation (Low since the hospital) Speech: Unremarkable Language: Adequate Fund of Knowledge: Adequate Attention and Concentration: Other (Fair) Memory: Impaired Mood: Sad Affect: Other (Decreased range and intensity) Thought Process & Associations: Disorganized Thought Content: Bizarre thinking Hallucination Type: None Delusion Type: None Suicidal Ideation: No (Denies at this time) Suicidal Plan: No Suicidal Intention: No Homicidal Ideation: No Homicidal Plan: No Homicidal Intention: No Insight: Poor Judgment: Poor Results Vitals/IOs Vital Signs Date Time Temp Pulse Resp B/P (MAP) Pulse Ox O2 Delivery O2 Flow Rate FiO2 12/27/17 06:45 97.8 74 17 116/57 (00) 92 Assessment & Plan Problem List: (1) Adjustment disorder with mixed disturbance of emotions and conduct ICD Codes: F43.25 - Adjustment disorder with mixed disturbance of emotions and conduct Assessment & Plan Continue current treatment plan Justification for Cont. Inpt. Patient would decompensate in a less restrictive setting Request HC Surrog/Guard Advoc?: No Slim Gomez DO Dec 27, 2017 12:42
[2017-12-27 17:02] VITALS: BP 161/70; PULSE 94; RESP 16; TEMP 97.5; O2SAT 96
--- NOTE | 2017-12-27 17:40 | RADRPT ---
EXAM DATE: 12/27/2017 5:36 PM EDT AGE/SEX: 77 years / Female INDICATIONS: Nontraumatic right hip pain for two days. CLINICAL DATA: This is the patient's initial encounter. Patient reports that signs and symptoms have been present for 2 days and indicates a pain score of 7/10. MEDICAL/SURGICAL HISTORY: None. None. COMPARISON: No prior exams available for comparison. FINDINGS: The bony pelvic ring is grossly intact. There is symmetric narrowing of the superior joint space in b oth hips. Moderate degenerative changes in the lower lumbar region. On the right hip views, there is normal appearance to the primary and secondary trabecular pattern of the femoral neck. Mild collar of osteophytes about the junction of femoral head and neck. CONCLUSION: No fracture seen. Mild to moderate degenerative changes in the right hip. Electronically signed by: Luiz Donahue MD 12/27/2017 5:39 PM EDT
[2017-12-27] MEDS: MIRTAZAPINE 15 MG TAB PO SCH (20:21)
[2017-12-27] MEDS: PRAVASTATIN SOD 40 MG TAB PO SCH (20:21)
[2017-12-27] MEDS: ACETAMINOPHEN 325 MG TAB PO PRN (20:24)
[2017-12-27 20:43] VITALS: BP 170/80; PULSE 104
[2017-12-28 06:06] VITALS: BP 119/66; PULSE 71; RESP 19; TEMP 97.8; O2SAT 92
[2017-12-28] MEDS: MULTIVITAMIN TAB PO SCH (08:12)
[2017-12-28] MEDS: EUCERIN CREAM 120 GM JAR TOPICAL SCH (09:00)
--- NOTE | 2017-12-28 11:27 | HHI.PR ---
Subjective Remarks Follow up for HTN, SARTHAK, hip pain. The patient is seen in the dayroom. Denies any hip pain today. Says she was able to ambulate without difficulty and was actually outside playing basketball. She denies any other medical complaints. Tolerating oral intake. Discussed with RN, no acute concerns. Objective Vitals Vital Signs Date Time Temp Pulse Resp B/P (MAP) Pulse Ox O2 Delivery O2 Flow Rate FiO2 12/28/17 06:06 97.8 71 19 119/66 (83) 92 12/27/17 21:24 16 12/27/17 20:43 104 170/80 (110) 12/27/17 17:02 97.5 94 16 161/70 (100) 96 I/O 12/27/17 12/27/17 12/27/17 12/28/17 12/28/17 12/28/17 06:59 14:59 22:59 06:59 14:59 22:59 Intake Total 1560 ml 240 ml Balance 1560 ml 240 ml Intake Oral 1560 ml 240 ml # Voids 2 4 # Bowel Movements 0 Result Diagram: 12/24/17 0700 12/26/17 0805 Imaging Last Impressions Hip and Pelvis X-Ray 12/27/17 0000 Signed Impressions: CONCLUSION: No fracture seen. Mild to moderate degenerative changes in the right hip. Objective Remarks GENERAL: Well-nourished, well-developed pleasantly confused elderly female patient in [facility]. SKIN: Warm and dry. No rash. Small healing abrasion at right posterior hip. HEENT: Normocephalic. Atraumatic. Pupils equal and round. Mucous membranes pink and moist. CARDIOVASCULAR: Regular rate and rhythm. No murmur appreciated. RESPIRATORY: No accessory muscle use. Clear to auscultation. Breath sounds equal bilaterally. GASTROINTESTINAL: Abdomen soft, non-tender, nondistended. Normoactive bowel sounds x4. MUSCULOSKELETAL: No obvious deformities. Extremities without clubbing, cyanosis , or edema. Right posterior lateral hip nontender today. NEUROLOGICAL: Awake and alert. No obvious cranial nerve deficits. Motor grossly within normal limits. Moving all extremities spontaneously. Normal speech. Medications and IVs Current Medications Medications (Trade) Dose Ordered Sig/Carmen Route Start Time Stop Time Status Last Admin (Tylenol) 650 mg Q4H PRN PO 12/24/17 04:30 12/27/17 20:24 (Milk Of Magnesia Liq) 30 ml DAILY PRN PO 12/24/17 04:30 (Mag-Al Plus Susp Liq) 30 ml Q6H PRN PO 12/24/17 04:30 (Habitrol 21 Mg Patch.24 Hr) 1 patch DAILY PRN T-DERMAL 12/24/17 04:30 Miscellaneous Information 1 HS PRN T-DERMAL 12/24/17 04:30 (Ativan) 1 mg Q4H PRN PO 12/24/17 05:00 (Ativan Inj) 1 mg Q4H PRN IV PUSH 12/24/17 05:00 (Ativan) 2 mg Q2H PRN PO 12/24/17 05:00 (Ativan Inj) 2 mg Q2H PRN IV PUSH 12/24/17 05:00 (Ativan Inj) 2 mg Q1H PRN IV PUSH 12/24/17 05:00 (Ativan Inj) 2 mg Q15M PRN IV PUSH 12/24/17 05:00 (Romazicon Inj) 0.2 mg Q1M PRN IV PUSH 12/24/17 05:00 (Benadryl) 50 mg HS PRN PO 12/24/17 21:00 12/26/17 20:20 (Atarax) 50 mg Q6H PRN PO 12/24/17 14:45 12/26/17 20:20 (Norvasc) 10 mg DAILY PO 12/25/17 09:00 12/28/17 08:12 (Remeron) 7.5 mg HS PO 12/24/17 21:00 12/27/17 20:21 (Theragran) 1 tab DAILY PO 12/25/17 09:00 12/28/17 08:12 (Pill Splitter) 1 ea UNSCH PRN OTHER 12/24/17 15:00 (Catapres) 0.1 mg Q6H PRN PO 12/24/17 17:15 12/27/17 20:21 (Eucerin Cream) 1 applic DAILY TOPICAL 12/26/17 09:00 12/28/17 09:00 (Pravachol) 40 mg HS PO 12/25/17 21:00 12/27/17 20:21 A/P Assessment and Plan 77-year-old female with Adjustment disorder: Acute -Continue management per psychiatry Hypertension: BP labile -Continue Norvasc 10mg daily -Continue clonidine as needed -Monitor BP, adjust antihypertensives as needed SARTHAK: Suspect prerenal secondary to dehydration recently decreased oral intake -Encouraged oral hydration, thoroughly discussed with the patient -Avoid nephrotoxins -Repeat BMP today still pending Hyperlipidemia -Lipid profile reviewed with elevated LDL at 170, cholesterol 257, and triglycerides 222 -10 year ASCVD risk 30.4, moderate intensity statin recommended -Continue Pravastatin 40mg HS, follow-up LFTs as outpatient, monitor for myalgias Right hip pain: Suspect osteoarthritis -Right hip x-ray shows some mild to moderate degenerative changes in the right hip; otherwise no fracture -Tylenol as needed for pain -Pain improved today, ambulating without difficulty DVT prophylaxis: Ambulation Discharge Planning Awaiting repeat BMP. Yamilet Araujo PA-C Dec 28, 2017 11:27 am
--- NOTE | 2017-12-28 13:02 | PD.HHIRCNE ---
Disclaimer Patient was given an explanation of the nature and purpose of the evaluation. Patient agreed to proceed with the evaluation and treatment plan. History Reason for Referral The patient is a 77 year old right handed female who was initially admitted to another medical facility and then [facility] for [facility] ideation. Reportedly the patient was upset that the son left home. She has had at least 5 prior [facility] admissions. She has a high school diploma, reported earning average grades and no learning difficulties. She worked in the [employer] department of [employer] in the past, now retired. She is x 2, and her second recently . She has two children. She is presently living alone. She is referred for baseline neuropsychological evaluation to assess cognitive, behavioral and emotional functioning, and to provide treatment recommendations. Additional Psychosocial Hx Hx Caffeine Use: Yes ( 1 cup qd) Hx Substance Use: No Level of Education: High School Prior Living Setting: Home Dominant Hand: Right Past Surgical/Medical History Past Surgery: Yes Major surgery in last 100 days: Unknown Hx Orthopedic Surgery: No Hx Cardiac Surgery: No Hx Chest Surgery: No Hx Abdominal Surgery: No Hx Genitourinary Surgery: No Hx Gynecologic Surgery: Yes Hx Endocrine Surgery: No Hx Eye Surgery: No Hx Ear Surgery: No Hx Oral Surgery: No History of Transplant: No Hx of Neuro Prob: No Hx Seizures: No Hx of Musculoskeletal Pro: Yes (weak) Hx Arthritis: No Hx Osteoporosis: No Hx Neck Problems: No Hx Back Problem: No Hx of Cardiovascular Prob: No Hx of Respiratory Problem: No Hx of GI Problems: No Hx of Problems: Yes Hx Infection: Yes (occasional UTI) Hx of Immuno Disor: No Hx of Endocrine Problems: No Hx Diabetes: No Hx of Eye Probl: No Hx of Hearing or Ear Problems: No Hx Dental Problems: No Hx Psychiatric Problems: Yes (5 to 6 Palma Acts in Past and Anxiety tx by PCP ) Hx Anxiety: Yes Hx Depression: Yes Hx Blood Dyscrasias: No Hx of MDRO: No Hx of MRSA: No Hx of VRE: No Hx of CDIFF: No Hx of Tuberculosis: No Hx Chicken Pox: No If No, Have You Been Exposed W: No Hx Measles: No Hx Pacemaker: No Blood Transfusion History Will receive Blood /Blood prod: Yes Hx Blood Transfusions: No Mental Status Assessment Orientation: oriented to Self, oriented to Place, oriented to Time, oriented to Situation Mental Status: WFL: Thought processing, Language/Interactions, Impaired: Learning/Memory, Problem-Solving, Visuospatial/Construction Adjustment/Coping Assessment Adjustment/Coping: Mild: Awareness, Insight, Moderate: Depression, Anxiety Observation In terms of emotional functioning, the patient demonstrated challenges. This patient demonstrated no signs of agitation, impulsivity or disinhibition, nor was there remarkable evidence of a formal thought disorder or psychosis. There was some evidence of depression and anxiety in spite of her self-report. The Geriatric Depression Scale-Short Form was administered given the ease to which it is administered to persons with known neurological pathology, and the patient endorsed onlyt one of 15 symptoms, which falls within the non depressed range. Thought content was free from suicidal, homicidal or paranoid ideation, and thought processes were somewhat tangential and concrete]. The patients mood was anxious, and her affect was worrisome. The patient appears to possess some insight and awareness into their situation yet within the limits of this brief evaluation, questionable judgment. LTG Status: Deferred STG Status: Deferred Team Members: Neuropsychologist Effort Assessment Effort: Average Cognition Assessment Rating: WFL: Language, Variable: Attention/Processing, Impaired: Immediate & Delayed Memor, Spatial Judgement, Executive Observation The patient was alert and oriented to person, place, time and circumstances surrounding the recent hospitalization. The Mini-Mental State Exam was administered, and the patient obtained a score of 25 out of 30 points, which falls in the normal range. However, on further evaluation, specific deficits were identified. In terms of attention skills, the patient exhibited normal abilities. The patient was able to remain on task and remember basic and complex verbal instructions. The patient was able to recall four of seven words from a list and she was able to spell WORLD backwards. In terms of memory functioning, the patient exhibited challenges. The patients initial registration of verbal information was normal, and the patient was able to improve her memory with repetition, but she had difficulties. After a period of delay, the patient was unable to recall this information from memory. More specifically, on the Luria Memory Words Test-Short Form, the patients trial one performance was 4 of 7 words, trial five performance was six of 7 words, the patients Total Learning score was 23 (at cut-off), and the patients Delayed recall score was 1 of 7 words (below cut-off). The patients ability to recall verbal information in a paragraph format was considered impaired, as she was only able to recall 22% of such information after one-half hour. In terms of speech and language skills, the patient demonstrated [challenges / normal abilities]. The patients initiated spontaneous conversation throughout the assessment. Speech was characterized by adequate prosody, grammar, articulation, volume and rate. No remarkable dysnomic or paraphasic errors were noted either during conversational speech or on confrontation naming tasks. Reading recognition skills were adequate, as were writing skills. Her reading recognition abilities on the WRAT-4 Reading subtest fell at a standard score of 88 (percentile rank of 21), which is roughly commensurate with estimates of her baseline abilities. The patients comprehension for basic one - and two-stage commands was normal. In terms of problem-solving skills, the patient exhibited challenges. The patients ability to understand abstraction reasoning was abnormal, as reflected in her inability to abstract essential shared characteristics of objects and concepts. Her mathematical reasoning skills were also abnormal. Speed of information processing, as evaluated by both the Letter and Category Fluency Tests was relatively normal. Finally, there was no evidence of ideomotor apraxia during this brief evaluation, although her constructional ability to reproduce graphomotor designs was abnormal. Summary/Diagnosis Summary Neuropsychological evaluation results demonstrate some mild neurocognitive impairment relative to baseline intellectual estimates that would be considered inconsistent with the normal aging process or the singular effects of emotional distress on cognition. She appears to be functioning at a low average intellectual ability in terms of baseline. Her memory functioning is mildly impaired, as are her logical abstract reasoning and mathematical skills. She exhibits visuomotor impairments as well. Otherwise she is alert and oriented. 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 The pattern of findings of the cognitive issues are presenting as a developing Alzheimer's disease condition. 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 She demonstrates the diminished ability to appreciate a situation and its likely consequences and she demonstrates the diminished ability to manipulate information rationally. As would anyone, he would benefit from the availability of family input regarding important instructions. Continued psychiatric evaluation to rule out reversible causes for her dementia is recommended. Such evaluation could include neuroimaging procedures to assist in diagnosis, and in order to look for clinical correlations with these neuropsychological evaluation results. Pharmacological interventions designed to reduce the progression of her memory impairment is also recommended , unless medically contraindicated. This patient requires outside assistance for her continued care. Presently, this patient is functioning at a Global Deterioration Scale level of 5, which functionally means for her that she can no longer survive at home without some assistance. During interview, she was unable to recall relevant aspects of her life; in addition to the cognitive impairments described in this report. Given these neuropsychological evaluation results, she essentially should not be living alone or at least without significant outside assistance. Session Attendance Variance 60 minutes Lamont Davison PhD Dec 28, 2017 1:02 pm
[2017-12-28] MEDS: ACETAMINOPHEN 325 MG TAB PO PRN (14:52)
--- NOTE | 2017-12-28 16:14 | HHI.PYPN ---
Subjective Remarks Patient seen today in her room with nurse Margarita, chart reviewed, patient complains of chronic pain in her tongue we will order Magic mouthwash. Patient denies suicidality, she is somewhat confused but overall doing better with her orientation and her focus. Consider discharge 1-2 days. Patient realizes graft return to her apartment and wait for the apartment and the [facility] Review of Systems Except as stated in HPI: all other systems reviewed are Neg Mental Status Examination Appearance: Appropriate Consciousness: Alert Orientation: x4, Person, Place (Confused), Date/Time (Quite confused), Situation (Low since the hospital) Speech: Unremarkable Language: Adequate Fund of Knowledge: Adequate Attention and Concentration: Other (Fair) Memory: Impaired Mood: Sad Affect: Other (Decreased range and intensity) Thought Process & Associations: Disorganized Thought Content: Bizarre thinking Hallucination Type: None Delusion Type: None Suicidal Ideation: No (Denies at this time) Suicidal Plan: No Suicidal Intention: No Homicidal Ideation: No Homicidal Plan: No Homicidal Intention: No Insight: Poor Judgment: Poor Results Vitals/IOs Vital Signs Date Time Temp Pulse Resp B/P (MAP) Pulse Ox O2 Delivery O2 Flow Rate FiO2 12/28/17 06:06 97.8 71 19 119/66 (83) 92 Intake and Output 12/28/17 12/28/17 12/29/17 08:00 16:00 00:00 Intake Total 240 ml Balance 240 ml Assessment & Plan Problem List: (1) Adjustment disorder with mixed disturbance of emotions and conduct ICD Codes: F43.25 - Adjustment disorder with mixed disturbance of emotions and conduct Assessment & Plan Estimated LOS: days patient's mood improving she is more focused processing well. We will order Magic mouthwash to help her with her tongue pain. She continues to improve consider discharge 1-2 days we will discontinue theciwa Justification for Cont. Inpt. At this time patient would decompensate a place to a lower level of care Discharge Planning Possible discharge 1-2 days back to her own place Request HC Surrog/Guard Advoc?: Dawson Driver MD Dec 28, 2017 16:14
[2017-12-28 18:55] VITALS: BP 133/65; PULSE 91; RESP 18; TEMP 97.5; O2SAT 94
[2017-12-28] MEDS: PRAVASTATIN SOD 40 MG TAB PO SCH (20:47)
[2017-12-28] MEDS: MIRTAZAPINE 15 MG TAB PO SCH (20:47)
[2017-12-28] MEDS: DIPHENHY/LIDO/MAG/ALUM MOUTHWASH (Adult/Peds) 60 ML BTL SWISH-SWAL SCH (21:57)
[2017-12-29 06:47] VITALS: BP 129/57; PULSE 75; RESP 16; TEMP 97.6
[2017-12-29 07:00] VITALS: O2SAT 92
[2017-12-29] MEDS: DIPHENHY/LIDO/MAG/ALUM MOUTHWASH (Adult/Peds) 60 ML BTL SWISH-SWAL SCH ×4 (08:00→21:00)
[2017-12-29 08:01] LABS: BICARBONATE 21.1 MEQ/L (21.0-32.0); CALCIUM 8.9 MG/DL (8.5-10.1); CREATININE 1.02 MG/DL (0.50-1.00)
[2017-12-29] MEDS: MULTIVITAMIN TAB PO SCH (08:20)
[2017-12-29] MEDS: EUCERIN CREAM 120 GM JAR TOPICAL SCH (08:20)
--- NOTE | 2017-12-29 13:23 | HHI.PYPN ---
Subjective Remarks Patient seen and valerio with nurse Anabel, chart reviewed, patient compliant medications, patient discussed with nurse. Patient overall somewhat better eye contact is improved. Affect is improved she has occasional small smile, she is somewhat more energetic. She does deny suicidality at this time. Though she did become tearful with me when I discussed her future plans. For now we will increase Remeron to 15 mg at at bedtime continue treatment Review of Systems Except as stated in HPI: all other systems reviewed are Neg Mental Status Examination Appearance: Appropriate Consciousness: Alert Orientation: x4, Person, Place (Confused), Date/Time (Quite confused), Situation (Low since the hospital) Speech: Unremarkable Language: Adequate Fund of Knowledge: Adequate Attention and Concentration: Other (Fair) Memory: Impaired Mood: Sad Affect: Other (Decreased range and intensity) Thought Process & Associations: Disorganized Thought Content: Bizarre thinking Hallucination Type: None Delusion Type: None Suicidal Ideation: No (Denies at this time) Suicidal Plan: No Suicidal Intention: No Homicidal Ideation: No Homicidal Plan: No Homicidal Intention: No Insight: Poor Judgment: Poor Results Labs Test 12/29/17 06:36 Blood Urea Nitrogen 27 MG/DL Creatinine 1.02 MG/DL Random Glucose 87 MG/DL Calcium Level 8.9 MG/DL Sodium Level 144 MEQ/L Potassium Level 4.1 MEQ/L Chloride Level 112 MEQ/L Carbon Dioxide Level 21.1 MEQ/L Anion Gap 11 MEQ/L Estimat Glomerular Filtration Rate 53 ML/MIN Vitals/IOs Vital Signs Date Time Temp Pulse Resp B/P (MAP) Pulse Ox O2 Delivery O2 Flow Rate FiO2 12/29/17 07:00 92 12/29/17 06:47 97.6 75 16 129/57 (81) Assessment & Plan Problem List: (1) Adjustment disorder with mixed disturbance of emotions and conduct ICD Codes: F43.25 - Adjustment disorder with mixed disturbance of emotions and conduct Assessment & Plan Estimated LOS: days patient's mood is somewhat improving, though she is still tearful and depressed will increase Remeron to 15 mg at bedtime Justification for Cont. Inpt. At this time patient would decompensate the place to a lower level of care Discharge Planning Possible return to her own apartment Request HC Surrog/Guard Advoc?: No Dawson Dickerson MD Dec 29, 2017 13:23
--- NOTE | 2017-12-29 14:23 | HHI.PR ---
Subjective Remarks Follow up for HTN, SARTHAK, hip pain. Patient appears comfortable eating lunch in the dayroom. Discussed with RN, no acute medical complaints. RN contacted [facility] and patient not on any medications. Objective Vitals Vital Signs Date Time Temp Pulse Resp B/P (MAP) Pulse Ox O2 Delivery O2 Flow Rate FiO2 12/29/17 07:00 92 12/29/17 06:47 97.6 75 16 129/57 (81) 12/28/17 18:55 97.5 91 18 133/65 (87) 94 I/O 12/28/17 12/28/17 12/28/17 12/29/17 12/29/17 12/29/17 07:00 15:00 23:00 07:00 15:00 23:00 Intake Total 240 ml 1020 ml Balance 240 ml 1020 ml Intake Oral 240 ml 1020 ml # Voids 2 Result Diagram: 12/29/17 0636 Imaging Last Impressions Hip and Pelvis X-Ray 12/27/17 0000 Signed Impressions: CONCLUSION: No fracture seen. Mild to moderate degenerative changes in the right hip. Objective Remarks GENERAL: Well-nourished, well-developed pleasantly confused elderly female patient in [facility]. Awake and alert. Appears comfortable. SKIN: Warm and dry. No rash. HEENT: Normocephalic. Atraumatic. Pupils equal and round. Mucous membranes pink and moist. CARDIOVASCULAR: Regular rate and rhythm. No murmur appreciated. RESPIRATORY: Nonlabored. Clear to auscultation. Breath sounds equal bilaterally. GASTROINTESTINAL: Abdomen soft, non-tender, nondistended. Normoactive bowel sounds x4. MUSCULOSKELETAL: No obvious deformities. Extremities without clubbing, cyanosis , or edema. NEUROLOGICAL: Awake and alert. No obvious cranial nerve deficits. Motor grossly within normal limits. Moving all extremities spontaneously. Normal speech. Procedures None A/P Assessment and Plan 77-year-old female with Adjustment disorder: Acute -Continue management per psychiatry Hypertension: BP labile -Continue Norvasc 10mg daily -Continue clonidine as needed -Monitor BP, adjust antihypertensives as needed SARTHAK: Suspect prerenal secondary to dehydration recently decreased oral intake Creatinine improved -encourage po fluid intake -Avoid nephrotoxins -continue to monitor kidney function as indicated Hyperlipidemia -Lipid profile reviewed with elevated LDL at 170, cholesterol 257, and triglycerides 222 -10 year ASCVD risk 30.4, moderate intensity statin recommended -Continue Pravastatin 40mg HS, follow-up LFTs as outpatient, monitor for myalgias Right hip pain: Suspect osteoarthritis Right hip x-ray shows some mild to moderate degenerative changes in the right hip; otherwise no fracture -Tylenol as needed for pain DVT prophylaxis: Ambulation Patient appears stable from hospitalist standpoint. [facility] will sign off. Please reconsult if needed. Janett Albert Dec 29, 2017 14:22
[2017-12-29 18:11] VITALS: BP 160/69; PULSE 91; RESP 18; TEMP 98; O2SAT 95
[2017-12-29] MEDS: PRAVASTATIN SOD 40 MG TAB PO SCH (20:28)
[2017-12-29] MEDS ORDERED: MIRTAZAPINE 15 MG TAB PO SCH (21:00)
[2017-12-29] MEDS: ACETAMINOPHEN 325 MG TAB PO PRN (22:01)
[2017-12-30 06:07] VITALS: BP 151/66; PULSE 74; RESP 18; TEMP 97.6; O2SAT 97
[2017-12-30] MEDS ORDERED: PRAV40TA PO (07:55)
[2017-12-30] MEDS ORDERED: MAGICPED SWISH-SWAL (07:55)
[2017-12-30] MEDS ORDERED: ACET-822 PO (07:55)
[2017-12-30] MEDS ORDERED: MIRTA15 PO (07:55)
[2017-12-30] MEDS ORDERED: AMLO10 PO (07:55)
[2017-12-30] MEDS: DIPHENHY/LIDO/MAG/ALUM MOUTHWASH (Adult/Peds) 60 ML BTL SWISH-SWAL SCH (08:00)
--- NOTE | 2017-12-30 08:00 | HHI.DS ---
Psychiatry Discharge Summary Inpatient Psychiatric care?: Yes Advance Directive: No Reason Not Provided: pt has this at home Mental Health AdvanceDirective: Yes Name and Number: n/a Health Care Proxy: No Admission Admission Date Dec 24, 2017 at 02:00 Admission Diagnosis: (1) Adjustment disorder with mixed disturbance of emotions and conduct ICD Code: F43.25 - Adjustment disorder with mixed disturbance of emotions and conduct Brief History Patient is a 77-year-old white female initially comes to [facility] under a [place] act dated 12/22/2017 and 4: 18 PM that document reviewed essentially states patient states she wants to kill herself and has filled out her well because she is serious about wanting to kill herself. Patient was seen and screened in that facility medically cleared and transferred here under the [place] act. At the present time patient sitting quietly in her room present also or medical student julia, counselor Violet, and nurse Anabel. Patient states she is depressed because of relationship with her son is moved out of the house she wishes him back in the house she is somewhat confusing with some of her history though overall she seems to be oriented. She states she has had past hospitalizations for medical issues but denies any psychiatric hospitalization. Though a phone call with her daughter states she has been [place] acted 5 times in the past. Patient denies suicidality to us denies homicidality denies voices or visions. She denies any alcohol or drug use. She is vague about any past physical or sexual abuse, is vague about any mental health history in her family. In any event at the present time patient does meet criteria for continued inpatient psychiatric hospitalization of the [place] act I will do first opinion request a second opinion. I feel she has capacity to sign for medications. We will have a hospitalist consult will S, we will continue medications per the med verification except for the had 2 benzodiazepines that have been noted. We will have a neuropsychology to assessment also to status and assessing her cognitive function. Hopefully this to be a short stay we need to work with family to discuss placement issues since they live 2 counties away. The patient is a 77-year-old woman, domiciled alone, psychiatric history of depression, who was hospitalized on the [place] act for suicidal ideation. She was consulted to me for second opinion. The patient is calm, cooperative, states that she feels much better today. She is eating her lunch, reports that she has been quite depressed and upset after her son move out of her house. But at this moment feels much better, denies hopelessness, denies hopelessness, denies worthlessness, she denies suicidal and homicidal ideation at the moment, she denies visual and auditory hallucinations. She is oriented 3. Tobacco Use In Past 30 Days: No Tobacco Past 30 Days Alcohol Use: Never Hospital Course Patient's hospital course was uneventful, she adapted to the milieu easily there are no significant behavioral problems, she showed compliance with the medication. Her mood did improve she now denies suicidality homicidality voices or visions. She is aware of the plans for her to move into an apartment in an assisted living type facility. Though the may be some affair she needs to take care of with that. At this time I feel patient reached maximum benefit of this hospitalization. Patient to be discharged today L faxed to transport her to the [place] area to her daughter's daughter will take patient to work of these issues. With Rx times a month to follow-up mental health services in that area Results Blood Pressure 151 / 66 Vital Signs Date Time Temp Pulse Resp B/P (MAP) Pulse Ox O2 Delivery O2 Flow Rate FiO2 12/30/17 06:07 97.6 74 18 151/66 (94) 97 Laboratory Tests Test 12/29/17 06:36 Blood Urea Nitrogen 27 MG/DL (7-18) Creatinine 1.02 MG/DL (0.50-1.00) Chloride Level 112 MEQ/L (98-107) Estimat Glomerular Filtration Rate 53 ML/MIN (>89) Laboratory Results Test 12/25/17 06:56 Cholesterol Level 257 MG/DL (120-200) HDL Cholesterol 42.5 MG/DL (40.0-60.0) Hemoglobin A1c 5.4 % (4.3-6.0) LDL Cholesterol 170 MG/DL (0-99) Triglycerides Level 222 MG/DL (42-150) Summary of Procedures None done Imaging Last Impressions Hip and Pelvis X-Ray 12/27/17 0000 Signed Impressions: CONCLUSION: No fracture seen. Mild to moderate degenerative changes in the right hip. Pending results at discharge: No Medications # of Antipsychotic meds at D/C: 0 Approp Antipsych med options 1 - Minimum of three failed multiple trials of monotherapy. 2 - Documented plan to taper to monotherapy due to previous use of multiple meds OR cross-taper in progress at D/C. 3 - Documentation of augmentation of Clozapine. 4 - Justification other than those listed in allowable values 1-3, document here : Discharge Discharge Date: Dec 30, 2017 Discharge Diagnosis: (1) Adjustment disorder with mixed disturbance of emotions and conduct Diagnosis: Principal ICD Code: F43.25 - Adjustment disorder with mixed disturbance of emotions and conduct Pt Condition on Discharge: Stable Discharge Disposition: Discharge Home Discharge Instructions Diet Instructions: As Tolerated, No Restrictions Activities you can perform: Regular-No Restrictions Scheduled Appointment: Your PCP Discharge Time > 30 minutes Mental Status Examination Appearance: Appropriate Consciousness: Alert Orientation: x4, Person, Place (Confused), Date/Time (Quite confused), Situation (Low since the hospital) Speech: Unremarkable Language: Adequate Fund of Knowledge: Adequate Attention and Concentration: Other (Fair) Memory: Impaired Mood: Sad Affect: Other (Decreased range and intensity) Thought Process & Associations: Disorganized Thought Content: Bizarre thinking Hallucination Type: None Delusion Type: None Suicidal Ideation: No (Denies at this time) Suicidal Plan: No Suicidal Intention: No Homicidal Ideation: No Homicidal Plan: No Homicidal Intention: No Insight: Poor Judgment: Poor Discharge/Advance Care Plan Health Problems: (1) Adjustment disorder with mixed disturbance of emotions and conduct Goals to promote your health * To prevent worsening of your condition and complications * To maintain your health at the optimal level Directions to meet your goals Take your medications as prescribed Follow your dietary instruction Follow activity as directed Keep your appointments as scheduled Take your immunizations and boosters as scheduled If your symptoms worsen call your PCP, if no PCP go to Urgent Care Center or Emergency Room For 24/ questions related to your inpatient stay or results of tests pending at discharge, please contact Dr. Dawson Dickerson at Smoking is Dangerous to Your Health. Avoid second hand smoking Dawson Dickerson MD Dec 30, 2017 08:00
[2017-12-30] MEDS: MULTIVITAMIN TAB PO SCH (08:07)
[2017-12-30] MEDS: EUCERIN CREAM 120 GM JAR TOPICAL SCH (08:07)
== END 2017-12-30 09:15 | disposition home or self-care (01) | DRG 882 ==
LOC: H250 12-24 02:00
PROVIDERS: ADMIT Psychiatry & Neurology Psychiatry; ATTEND Psychiatry & Neurology Psychiatry
DX: F43.25 Adjustment disorder with mixed disturbance of emotions and conduct (principal); E86.0 Dehydration; R39.2 Extrarenal uremia; I10 Essential (primary) hypertension; E78.5 Hyperlipidemia, unspecified; M25.551 Pain in right hip; K14.6 Glossodynia
CPT/HCPCS: 73502; 80048; 80053; 80061; 83036; 84443; 85025; Q0163